=== PATIENT | female | born 1940 | race Hispanic/Latino ===

== ENCOUNTER 2020-08-24 22:54 | Emergency (ER) | payer MEDICARE, OTHER ==
[~2020-08-24 22:54] MED LIST: AEC81 PO; CLOP75TA32 PO; GABA-531 PO; LOVA20TA3 PO; METO100T7 PO; MULT-1192 PO
== END 2020-08-24 23:08 | disposition left against medical advice (07) ==
LOC: EDH 22:54
DX: H92.01 Otalgia, right ear (principal); I10 Essential (primary) hypertension; E11.9 Type 2 diabetes mellitus without complications; F41.9 Anxiety disorder, unspecified; Z53.21 Procedure and treatment not carried out due to patient leaving prior to being seen by health care provider